=== PATIENT | female | born 1955 | race Caucasian/White ===

== ENCOUNTER 2018-10-27 13:04 | Inpatient (IN) ==
--- NOTE | 2018-10-27 13:46 | Emergency Department Note ---
History of Present Illness General Chief complaint: Illness Stated complaint: weakness/nausea Time Seen by Provider: 10/27/18 13:25 History of Present Illness 62-year-old female presents to the ER via ALS from home with complaints of not feeling well and feeling weak. The patient states that she feels the same way as when she was in kidney failure in the past. She does have stage III renal disease. She is followed by Dr. Young, nephrology. The patient states that she feels weak "like she is walking on clouds" and also states that she seems somewhat confused. The patient admits to one episode of vomiting this morning after she drank 3 cups of water. The patient denies any leg swelling today. She denies any urinary symptoms of frequency urgency or dysuria. She states she is voiding normally. She denies any diarrhea. Past Med/Surg History Social History Feels Safe at Home: Yes Smoking Status: Never smoker Review of Systems A total of 10 systems reviewed and were otherwise negative Physical Exam Vital Signs Vital Signs - 24 hr 10/27/18 13:05 10/27/18 14:03 10/27/18 14:47 Temperature 36.7 C Temperature Source Oral Sepsis Recent Fever Within 48 Hours No Sepsis Action Taken by Nursing No Action Required Pulse Rate - Lying 68 Pulse Rate - Sitting 70 Pulse Rate - Standing 69 Pulse Rate 64 Pulse Rate [Apical] 64 68 Pulse Rhythm [Apical] Regular Pulse Strength [Apical] Normal Respiratory Rate 16 16 16 Respiratory Effort / Characteristics Non-Labored Spontaneous Respiratory Depth Normal Respiratory Pattern Regular Blood Pressure - Lying 201/74 H Blood Pressure - Sitting 183/64 H Blood Pressure- Standing 181/85 H Blood Pressure 192/72 H Blood Pressure [Right Arm] 198/69 H 201/74 H Blood Pressure Mean 112 Blood Pressure Mean [Right Arm] 112 116 Blood Pressure Position [Right Arm] Lying Pulse Oximetry 94 92 Oxygen Delivery Method Room Air Room Air GENERAL: Obese 62-year-old white female appears in no acute distress. MENTAL Status: Patient is alert and oriented x3. The patient does not show any signs of confusion. EYES: PERRLA. EOMs intact. EARS: Canals clear. TMs without fluid level noted. NECK: Supple, no lymphadenopathy noted. No carotid bruits noted. LUNGS: Clear auscultation without wheezes rales or rhonchi. CARDIAC: Regular rate and rhythm with 2 out of 6 murmur noted at the left sternal border. Pulses is full and equal throughout. ABDOMEN: Positive bowel sounds all 4 quadrants. Soft, nontender to palpation without organomegaly or masses. NEURO:Cranial nerves two through 12 intact. Cerebellar function intact with [id number]. Fine motor intact with alternating finger motions. LOWER EXTREMITIES: No cyanosis or edema noted. Medical Decision Making Differential Diagnosis Viral illness, renal failure Medical Records Attestation: I reviewed the patient's medical records. Home Medications Current Medication List: was personally reviewed by in Laboratory Data Attestation: I reviewed the patient's lab results. Result diagrams: 10/27/18 13:59 10/27/18 13:59 Lab Results 10/27/18 10/27/18 10/27/18 Range/Units 13:59 13:59 14:20 WBC 7.96 (4.8-10.8) K/uL RBC 3.61 L (4.2-5.4) M/uL Hgb 11.7 L (12.0-16.0) g/dL Hct 33.2 L (37-47) % MCV 92.0 (80-100) fL MCH 32.4 (25-34) pg MCHC 35.2 (32-36) g/dL RDW Std Deviation 42.7 (36.4-46.3) fL RDW Coeff of Amarilis 12.6 (11.5-14.5) % Plt Count 133 (130-400) K/uL MPV 9.9 (7.4-10.4) fL Immature Gran % (Auto) 0.3 % Neut % (Auto) 79.2 % Lymph % (Auto) 12.7 % Floyd % (Auto) 6.4 % Eos % (Auto) 1.1 % Baso % (Auto) 0.3 % Immature Gran # (Auto) 0.02 (0.00-0.02) K/uL Neut # (Auto) 6.31 (1.4-6.5) K/uL Lymph # (Auto) 1.01 L (1.2-3.4) K/uL Floyd # (Auto) 0.51 (0.11-0.59) K/uL Eos # (Auto) 0.09 (0-0.5) K/uL Baso # (Auto) 0.02 (0-0.2) K/uL Sodium 139 (136-145) mmol/L Potassium 5.3 H (3.5-5.1) mmol/L Chloride 105 (98-107) mmol/L Carbon Dioxide 28 (21-32) mmol/L Anion Gap 6.0 (3-11) BUN 29 H (7-18) mg/dl Creatinine 1.47 H (0.6-1.2) mg/dl Est Cr Clr Drug Dosing 44.4 ml/min Est GFR ( Amer) 43.9 Est GFR (Non-Af Amer) 37.9 BUN/Creatinine Ratio 19.7 (10-20) Glucose 141 H (70-99) mg/dl Calcium 9.8 (8.5-10.1) mg/dl Total Bilirubin 0.5 (0.2-1) mg/dl AST 16 (15-37) U/L ALT 27 (12-78) U/L Alkaline Phosphatase 90 (45-117) U/L Total Protein 6.7 (6.4-8.2) gm/dl Albumin 3.4 (3.4-5.0) gm/dl Globulin 3.3 (2.5-4.0) gm/dl Albumin/Globulin Ratio 1.0 (0.9-2) Urine Color Yellow Urine Appearance Clear (Clear) Urine pH 5.0 (4.5-7.5) Ur Specific [place] 1.017 (1.000-1.030) Urine Protein Negative (Negative) Urine Glucose (UA) Negative (Negative) Urine Ketones Negative (Negative) Urine Blood Negative (Negative) Urine Nitrite Negative (Negative) Urine Bilirubin Negative (Negative) Urine Urobilinogen Negative (Negative) Ur Leukocyte Esterase Trace H (Negative) Urine WBC (Auto) 1-5 (0-5) /hpf Urine RBC (Auto) 0-4 (0-4) /hpf U Hyaline Cast (Auto) 1-5 (0-5) /lpf U Epithel Cells (Auto) 20-30 H (0-5) /lpf Urine Bacteria (Auto) Negative (Negative) Blood Pressure Blood Pressure Findings: Elevated blood pressure Blood Pressure Disposition: Referred to patients primary care provider WIL Brantley The patient was evaluated. IV access was obtained. CBC and differential, renal profile, LFTs were ordered. Urinalysis was ordered. Labs are reviewed. The patient's BUN was 29 and creatinine is 1.47. I reviewed the patient's prior labs over the last year and this is comparable to her past levels. Urinalysis was negative. The patient states when she got up to go to the bathroom she felt dizzy therefore orthostatics were ordered. The patient's blood pressure dropped 20 points when she stood up but she has been very hypertensive while in the ER. The patient states that they have been changing her blood pressure meds over the last 6 months. The patient was discharged to home with instructions to follow- up within 2 days with her family doctor for her elevated blood pressure and orthostatic hypotension. Impression & Plan Hypertension, Orthostatic hypotension Discharge Plan Visit Data Chief Complaint: Illness Stated Complaint: weakness/nausea ED Provider: Kareem Luther ED Midlevel Provider: Yvonne Maciel Discharge Problem: Hypertension, Orthostatic hypotension Patient Disposition: Home - Self-Care Condition: Good Discharge Instructions Activity Restrictions/Additional Instructions: Keep hydrated as per your release engineer. Make sure you get up very slowly to prevent dizziness. Call your PCP today for follow-up appointment within 2 days. If symptoms worsen in the interim, return to ER. Forms Stand Alone Forms: [facility], Important Visit Information Referrals Referrals: Denton Huddleston [Primary Care Provider] - Discharge Problem: Hypertension Qualifiers: Hypertension type: unspecified Qualified Code(s): I10 - Essential (primary) hypertension
[2018-10-27 14:21] LABS: Basophils # (auto) 0.02 K/uL (0-0.2); Basophils % (auto) 0.3 %; Eosinophils # (auto) 0.09 K/uL (0-0.5); Eosinophils % (auto) 1.1 %; Hematocrit (blood only) 33.2 % (37-47); Hemoglobin 11.7 g/dL (12.0-16.0); Immature Granulocytes # (auto) 0.02 K/uL (0.00-0.02); Immature Granulocytes % (auto) 0.3 %; Lymphocytes # (auto) 1.01 K/uL (1.2-3.4); Lymphocytes % (auto) 12.7 %; Mean Corpuscular Hgb Conc 35.2 g/dL (32-36); Mean Platelet Volume 9.9 fL (7.4-10.4); Monocytes # (auto) 0.51 K/uL (0.11-0.59); Monocytes % (auto) 6.4 %; Neutrophils # (auto) 6.31 K/uL (1.4-6.5); Neutrophils % (auto) 79.2 %; Platelet Count 133 K/uL (130-400); RDW Coefficient of Variation 12.6 % (11.5-14.5); RDW Standard Deviation 42.7 fL (36.4-46.3); Red Blood Count 3.61 M/uL (4.2-5.4); White Blood Count 7.96 K/uL (4.8-10.8)
[2018-10-27 14:34] LABS: Albumin Level 3.4 gm/dl (3.4-5.0); BUN Creatinine Ratio 19.7 (10-20); Calcium 9.8 mg/dl (8.5-10.1); Creatinine Clr Calc Pharmacy 44.4 ml/min; Est GFR (African American) 43.9; Est GFR (Non-African American) 37.9; Potassium 5.3 mmol/L (3.5-5.1)
[2018-10-27 14:36] LABS: Appearance Urine Clear (Clear); Bacteria Urine Automated Negative (Negative); Bilirubin Urine Negative (Negative); Blood Urine Negative (Negative); Color Urine Yellow; Epithelial Cell Urine Auto 20-30 /lpf (0-5); Glucose Urine UA Negative (Negative); Ketones Urine Negative (Negative); Leukocyte Esterase Urine Trace (Negative); Nitrite Urine Negative (Negative); Protein Urine Negative (Negative); RBC Urine Automated 0-4 /hpf (0-4); Specific Gravity Urine 1.017 (1.000-1.030); Urobilinogen Urine Negative (Negative)
[2018-10-27 14:37] LABS: Bilirubin,Total 0.5 mg/dl (0.2-1); Globulin 3.3 gm/dl (2.5-4.0); Total Protein 6.7 gm/dl (6.4-8.2)
[2018-10-27] MEDS ORDERED: ONDANSETRON INJ 2 MG/ML 2 ML VIAL IV STA (15:55)
[2018-10-27] MEDS ORDERED: PROCHLORPERAZINE 10 MG in SYRINGE 8 ML IV PRN (19:17)
[2018-10-27] MEDS ORDERED: ACETAMINOPHEN 325 MG TAB PO PRN (19:17)
[2018-10-27] MEDS ORDERED: ONDANSETRON INJ 2 MG/ML 2 ML VIAL IV PRN (19:17)
[2018-10-27] MEDS ORDERED: ALBUTEROL HFA 8 GM INHALER INH PRN (19:21)
[2018-10-27] MEDS ORDERED: NITROGLYCERIN SL 0.4 MG/TAB TAB SL PRN (19:21)
[2018-10-27] MEDS ORDERED: ENOXAPARIN INJ 40 MG/0.4 ML SYR SQ SCH (19:30)
--- NOTE | 2018-10-27 19:33 | History & Physical Report ---
Date of Service October 27, 2018 Assessment & Plan (1) Intractable nausea and vomiting: (2) Hypertensive urgency: (3) Orthostatic hypotension: - Admit to med surg with tele - Will check orthostatics QS - Continue NSS for now for hydration as pt has had difficulty with po intake today- multiple episodes of nausea and vomiting at home. While in the ER she continued to be diaphoretic with sitting up in bed and was unable to stand without assistance. She turns white and remains in a lying position during my exam. She was able to sit up for lung exam however needed to quickly to return to lying flat. - Zofran and compazine prn - Follow urine culture. - Checking EKG now - Pt notes she had felt like this previously during an episode of "kidney failure" - however currently appears Cr is at baseline. Follow with am labs - Checking TSH and Free T3 as pt reports recently following with an e ndocrinologist for fluctuating levels. She reports having cortisol level recently checked and reports this was normal. (4) Chronic renal failure, stage 3 (moderate): - Cr. 1.7, appears to be around baseline. Follow with am labs. - Continue NSS at 100 ml/hr x 12 hrs. - Hold lasix, resume as able. (5) CAD (coronary artery disease): - EKG ordered - Stable currently, no chest pain, palpitations. - Continue Imdur and Ranexa, Plavix, Toprol 25 mg daily, pravastatin 40 mg daily (6) Hypertension: - As above (7) HLD (hyperlipidemia): - Cont statin therapy (8) Morbid obesity with BMI of 40.0-44.9, adult: - Diet and exercise to be encouraged upon discharge - HH diet allowed (9) Fibromyalgia: - Chronic, continue amitriptyline HS for sleep (10) DVT prophylaxis: - heparin subq History of Present Illness Chief Complaint: Nausea, vomiting, elevated BP Primary Care Provider: Denton Huddleston This is a 62 yo F with PMHx of HTN, HLD, CAD with hx of CABG x 4 in 2014, obesity with BMI of 41.1, asthma, who presents with acute onset of lightheadedness, dizziness, who then proceeded to have nausea and vomited several times at home this morning. Her BP was elevated at home in with systolic in the 180s, and then was also found to be elevated once in the ER greater than ~200/70. She had been given zofran and IVF while in the ER, however continued lightheadedness and dizziness prompted further eval. Pt feels slightly better at this time after fluid administration. She has been taking all her medications as prescribed. She reports being sick over the winter with multiple bouts of URI but has not been on any antibiotic or steroid within the past 3-4 wks. She denies other current complaints. Allergies Allergy/AdvReac Type Severity Reaction Status Date / Time amoxicillin Allergy Intermediate Rash Verified 10/27/18 15:53 latex Allergy Intermediate Infection Verified 10/27/18 15:53 Home Medications Home Medications Medication Instructions Recorded Confirmed Type albuterol sulfate [Ventolin HFA] 2 puff INHALATION Q6H PRN 10/27/18 10/27/18 History amitriptyline 25 mg PO HS 10/27/18 10/27/18 History clopidogrel [Plavix] 75 mg PO DAILY 10/27/18 10/27/18 History famotidine [Pepcid] 20 mg PO DAILY 10/27/18 10/27/18 History furosemide [Lasix] 20 mg PO QAM 10/27/18 10/27/18 History isosorbide mononitrate 30 mg PO BID 10/27/18 10/27/18 History metoprolol succinate 25 mg PO DAILY 10/27/18 10/27/18 History nitroglycerin [Nitrostat] 0.4 mg SUBLINGUAL DIRECTED PRN 10/27/18 10/27/18 History ondansetron 4 mg PO Q8H PRN 4 Days #10 tab 10/27/18 Rx potassium chloride 10 meq PO DAILY 10/27/18 10/27/18 History pravastatin 40 mg PO DAILY 10/27/18 10/27/18 History ranolazine [Ranexa] 1,000 mg PO BID 10/27/18 10/27/18 History Past Med/Surg History Medical History Intractable nausea and vomiting Hypertensive urgency Fibromyalgia Morbid obesity with BMI of 40.0-44.9, adult HLD (hyperlipidemia) Orthostatic hypotension (Acute) Chronic renal failure, stage 3 (moderate) CAD (coronary artery disease) Hypertension (Acute) Family History Other Hypertension Social History Feels Safe at Home: Yes Smoking Status: Never smoker Hx Alcohol Use: No Hx Substance Use: No Review of Systems Constitutional: No fever, sweats or chills, + lightheadedness, + dizziness Eyes: No diplopia, no worsening or blurred vision ENT: normal hearing, no trouble swallowing Respiratory: No cough, sputum, dyspnea at rest or on exertion Cardiovascular: No chest pain, tightness or palpitations Abdomen: No pain. + nausea and vomiting this morning. No diarrhea or constipation Musculoskeletal: No joint pain, calf pain, swelling Neurologic: No weakness, numbness/tingling, or balance problems Psychiatric: No anxiety or depression Skin: No rash or itch Physical Exam Vital Signs (Past 24 Hours): Last Vital Signs Temp 36.7 C 10/27/18 13:05 Pulse 67 10/27/18 18:37 Resp 20 10/27/18 18:37 BP 147/68 H 10/27/18 18:37 Pulse Ox 92 10/27/18 18:37 Physical Exam: General: awake, alert, no apparent distress, morbidly obese Head: Normocephalic, atraumatic ENT: PERRL, EOMI, no pharyngeal exudate, mucous membranes moist Chest: Clear to auscultation, on room air, no adventitious breath sounds Cardiac: Regular rate and rhythm, no murmur, no JVD, normal peripheral pulses, good capillary refill Abdominal: NABS x 4 quadrants, soft, nontender to palpation, no rebound, guarding or tenderness Extremities: Normal inspection, no peripheral edema or erythema, calfs nontender to palpation Psych: Normal mood and affect Neuro: AAO x 3, strength intact bilaterally and related 5/5, no motor deficits, speech is clear, no peripheral sensory deficits Constitutional: WD/WN, vitals as above + obese Eyes: normal visual fontenot by confrontation and + anicteric sclerae Neck: normal visual inspection and trachea midline Respiratory: normal respiratory effort, lungs clear to auscultation Cardiovascular: Rate/Rhythm: regular rate and regular rhythm Gastrointestinal (Abdomen): Inspection/Auscultation: abdomen not distended Percussion/Palpation: abdomen soft; abdomen nontender Musculoskeletal: Head/Neck/Chest: normocephalic and head atraumatic Neg for peripheral LE edema, + pedal pulses Skin: no rashes, warm and dry Neurologic: awake; not confused Speech / Cognition: normal speech Psychiatric: A+Ox3, euthymic affect Lymphatic: Exam as done by Elyssa Whitaker, DO Results & Data Diagnostic Findings NO diagnostics to review. Code Status & VTE Plan Code Status Full - discussed with at bedside Supervising Physician Co-Signing Physician Notes Pt seen and examined by me. Denies chest pain or SOB. States n/v today only and became lightheaded and weak. She states this feels similar to when her renal function was abn and so she came for eval. Zofran is helping with emesis although still nauseated. No abd pain or diarrhea Agree with HPI/ROS as noted by PA See above for my exam in PE section Agree with plan as outlined above Gastroenteritis vs HTN emergency vs both UA noted, cx pending and holding on abx Mild hyperK in the setting of PO replacement, monitor with IVF Cr is around baseline EKG pending (1) Hypertension Hypertension type: unspecified Qualified Code(s): I10 - Essential (primary) hypertension
[2018-10-27] MEDS ORDERED: AMITRIPTYLINE HCL 25 MG TAB PO SCH (21:00)
[2018-10-27 22:03] LABS: Prothrombin Time 10.4 Seconds (9.0-12.0)
[2018-10-27] MEDS: RANOLAZINE 500 MG ER TAB PO SCH (22:14)
[2018-10-27] MEDS: SODIUM CHLORIDE 0.9% 1000ML 1,000 ML IV SCH (22:23)
[2018-10-27] MEDS: SODIUM CHLORIDE 0.9% 500 ML IV SCH (22:24)
[2018-10-27] MEDS: ISOSORBIDE MONO EXTENDED REL 30 MG TABCR PO SCH (23:25)
[2018-10-27] MEDS: HEPARIN SOD 5,000 UNIT/0.5 ML VIAL SQ SCH (23:27)
[2018-10-28] MEDS ORDERED: INFLUENZA ADMINISTRATION CHARGE ONE (00:45)
[2018-10-28] MEDS ORDERED: INFLUENZA VIRUS QUAD VACCINE 0.5 ML SYR IM ONE (00:45)
[2018-10-28] MEDS: HEPARIN SOD 5,000 UNIT/0.5 ML VIAL SQ SCH ×2 (06:08→15:16)
[2018-10-28 06:22] LABS: Hematocrit (blood only) 30.9 % (37-47); Hemoglobin 10.8 g/dL (12.0-16.0); Mean Corpuscular Volume 92.8 fL (80-100); Mean Platelet Volume 9.3 fL (7.4-10.4); Platelet Count 133 K/uL (130-400); RDW Coefficient of Variation 12.8 % (11.5-14.5); RDW Standard Deviation 43.7 fL (36.4-46.3); Red Blood Count 3.33 M/uL (4.2-5.4); White Blood Count 6.73 K/uL (4.8-10.8)
[2018-10-28 06:42] LABS: Albumin Level 2.9 gm/dl (3.4-5.0); BUN Creatinine Ratio 18.5 (10-20); Calcium 9.2 mg/dl (8.5-10.1); Creatinine Clr Calc Pharmacy 49.2 ml/min; Est GFR (African American) 50.4; Est GFR (Non-African American) 43.5; Magnesium 1.6 mg/dl (1.8-2.4); Potassium 4.6 mmol/L (3.5-5.1)
[2018-10-28 06:45] LABS: Bilirubin,Total 0.4 mg/dl (0.2-1); Phosphorus 2.9 mg/dl (2.5-4.9); Total Protein 5.9 gm/dl (6.4-8.2)
[2018-10-28] MEDS: SODIUM CHLORIDE 0.9% 500 ML IV SCH (07:23)
[2018-10-28] MEDS: SODIUM CHLORIDE 0.9% 1000ML 1,000 ML IV SCH (08:27)
[2018-10-28] MEDS: ISOSORBIDE MONO EXTENDED REL 30 MG TABCR PO SCH (08:29)
[2018-10-28] MEDS: RANOLAZINE 500 MG ER TAB PO SCH (08:31)
[2018-10-28] MEDS ORDERED: POTASSIUM CHLORIDE 10 MEQ TABCR PO SCH (09:00)
[2018-10-28] MEDS ORDERED: FUROSEMIDE 40 MG TAB PO SCH (09:00)
[2018-10-28] MEDS ORDERED: METOPROLOL SUCC 50MG EXT REL TAB PO SCH (09:00)
[2018-10-28] MEDS ORDERED: FAMOTIDINE 20 MG TAB PO SCH (09:00)
[2018-10-28] MEDS ORDERED: FUROSEMIDE 20 MG TAB PO SCH (09:00)
[2018-10-28] MEDS ORDERED: CLOPIDOGREL BISULFATE 75 MG TAB PO SCH (09:00)
[2018-10-28] MEDS ORDERED: PRAVASTATIN SOD 40 MG TAB PO SCH (09:00)
--- NOTE | 2018-11-03 21:42 | Discharge Summary ---
Date of Service October 28, 2018 Admission HPI Per Admitting Provider This is a 62 yo F with PMHx of HTN, HLD, CAD with hx of CABG x 4 in 2015, obesity with BMI of 41.1, asthma, who presents with acute onset of lightheadedness, dizziness, who then proceeded to have nausea and vomited dennis ral times at home this morning. Her BP was elevated at home in with systolic in the 180s, and then was also found to be elevated once in the ER greater than ~200/70. She had been given zofran and IVF while in the ER, however continued lightheadedness and dizziness prompted further eval. Pt feels slightly better at this time after fluid administration. She has been taking all her medications as prescribed. She reports being sick over the winter with multiple bouts of URI but has not been on any antibiotic or steroid within the past 3-4 wks. She denies other current complaints. Principal Diagnosis hypertensive urgency Discharge Exam Constitutional: WD/WN, vitals as above + obese Eyes: normal visual fontenot by confrontation and + anicteric sclerae Neck: normal visual inspection and trachea midline Respiratory: normal respiratory effort, lungs clear to auscultation Cardiovascular: Rate/Rhythm: regular rate and regular rhythm Gastrointestinal (Abdomen): Inspection/Auscultation: abdomen not distended Percussion/Palpation: abdomen soft; abdomen nontender Musculoskeletal: Head/Neck/Chest: normocephalic and head atraumatic Neg for peripheral LE edema, + pedal pulses Skin: no rashes, warm and dry Neurologic: awake; not confused Speech / Cognition: normal speech Psychiatric: A+Ox3, euthymic affect Discharge Data Allergies Allergy/AdvReac Type Severity Reaction Status Date / Time amoxicillin Allergy Intermediate Rash Verified 10/27/18 15:53 latex Allergy Intermediate Infection Verified 10/27/18 15:53 Consultations 10/27/18 17:40 ED Decision to Admit Stat Hospital Course (1) Intractable nausea and vomiting: (2) Hypertensive urgency: (3) Orthostatic hypotension: - Admit to med surg with tele - Will check orthostatics QS - Continue NSS for now for hydration as pt has had difficulty with po intake today- multiple episodes of nausea and vomiting at home. While in the ER she continued to be diaphoretic with sitting up in bed and was unable to stand without assistance. She turns white and remains in a lying position during my exam. She was able to sit up for lung exam however needed to quickly to return to lying flat. - Zofran and compazine prn - Follow urine culture. - Checking EKG now - Pt notes she had felt like this previously during an episode of "kidney failure" - however currently appears Cr is at baseline. Follow with am labs - Checking TSH and Free T3 as pt reports recently following with an school coordinator for fluctuating levels. She reports having cortisol level recently checked and reports this was normal.. On day after admission, patient reports feeling back to baseline. Will recommend that patient keeps a diary of her symptoms and have her followup with her PCP. TSH was normal. BP was also better controlled (4) Chronic renal failure, stage 3 (moderate): - Cr. 1.47, appears to be around baseline. Follow with am labs. - Continue NSS at 100 ml/hr x 12 hrs. - Hold lasix, resume as able. On day of discharge creatinine improved to 1.31 (5) CAD (coronary artery disease): - EKG ordered - Stable currently, no chest pain, palpitations. - Continue Imdur and Ranexa, Plavix, Toprol 25 mg daily, pravastatin 40 mg daily (6) Hypertension: - As above (7) HLD (hyperlipidemia): - Cont statin therapy (8) Morbid obesity with BMI of 40.0-44.9, adult: - Diet and exercise to be encouraged upon discharge - HH diet allowed (9) Fibromyalgia: - Chronic, continue amitriptyline HS for sleep (10) DVT prophylaxis: - heparin subq Total Time Total Time Spent Total Time Spent (In Minutes): 32 Total Time Includes: Examination of the Patient, Discharge Planning and Medication Reconciliation Discharge Plan Discharge Items Patient Disposition: Home - Self-Care Reason For Visit: HYPERTENSIVE URGENCY,NAUSEA,VOMITING Discharge Diagnosis: Hypertensive urgency Condition: Good Discharge Goals: Decrease discomfort and Improve disease control Activity: Resume your previous activity Non-emergency contact: Primary Care Provider Call non-emergency contact if: you have any medication questions Follow-up/Referrals: Denton Huddleston [Primary Care Provider] - Diet: Heart Healthy Addtl Provider Instructions: F/U with PCP in 1-2 weeks. Write a diary of your symptoms. Information: duration, what were you doing when they happened, what do you feel, how long it lasts? Prescriptions: Continued furosemide [Lasix] 40 mg Tablet 20 mg PO QAM RF: 0 pravastatin 40 mg Tablet 40 mg PO DAILY RF: 0 metoprolol succinate 50 mg Tablet Extended Release 24 Hr 25 mg PO DAILY RF: 0 potassium chloride 10 mEq Tablet Extended Release 10 meq PO DAILY RF: 0 clopidogrel [Plavix] 75 mg Tablet 75 mg PO DAILY RF: 0 famotidine [Pepcid] 20 mg Tablet 20 mg PO DAILY RF: 0 amitriptyline 25 mg Tablet 25 mg PO HS RF: 0 nitroglycerin [Nitrostat] 0.4 mg Tablet, Sublingual 0.4 mg sublingual DIRECTED PRN (Reason: Chest Pain) RF: 0 albuterol sulfate [Ventolin HFA] 90 mcg/actuation Hfa Aerosol Inhaler 2 puff INHALATION Q6H PRN (Reason: Shortness Of Breath Or Wheezing) RF: 0 ranolazine [Ranexa] 1,000 mg Tablet Extended Release 12 Hr 1,000 mg PO BID RF: 0 isosorbide mononitrate 30 mg 30 mg PO BID RF: 0 Stand-Alone Forms: [facility] Discharge Orders: Discharge Order (Routine); Ordered 10/28/18 Ordered By: Jose Angulo Admission Data Admit Date/Time: 10/27/18 19:17 Attending Provider: Jose Angulo Admit Provider: Elyssa Whitaker Primary Care Provider: Denton Huddleston Service: Telemetry Medical Other Interventions: Discharge Summary Assessment (RN) Last Done: 10/28/18 16:18 DC Date/Time DO NOT enter until pt leaves facility: 10/28/18 16:55
== END 2018-10-28 16:55 | disposition home or self-care (01) | DRG 305 ==
LOC: ED 13:04 → SUATTDRO 19:17 → 2W 19:17
DX: Z68.41 Body mass index [BMI] 40.0-44.9, adult; E78.5 Hyperlipidemia, unspecified; Z79.02 Long term (current) use of antithrombotics/antiplatelets; E87.6 Hypokalemia; J45.909 Unspecified asthma, uncomplicated; R11.2 Nausea with vomiting, unspecified; Z23 Encounter for immunization; I25.10 Atherosclerotic heart disease of native coronary artery without angina pectoris; Z79.899 Other long term (current) drug therapy; E66.01 Morbid (severe) obesity due to excess calories; I12.9 Hypertensive chronic kidney disease with stage 1 through stage 4 chronic kidney disease, or unspecified chronic kidney disease; M79.7 Fibromyalgia; I16.0 Hypertensive urgency; I95.1 Orthostatic hypotension; Z95.1 Presence of aortocoronary bypass graft